=== PATIENT | female | born 1980 | race Caucasian/White ===

== ENCOUNTER 2019-07-13 06:10 | Day surgery (SDC) | payer OTHER ==
[~2019-07-13] VITALS: Ht 167.6 cm; Wt 131.6 kg
[~2019-07-13 06:10] MED LIST: CALCIUM; VITAMIN D; aspirin; folic acid; lisinopril; metformin; multivitamin; simvastatin
[2019-07-13 07:15] VITALS: Ht 167.6 cm; Wt 131.6 kg
[2019-07-13 07:20] VITALS: BP 128/69; PULSE 65; RESP 18
[2019-07-13] MEDS ORDERED: PROPOFOL 60 ML ONE (07:56)
[2019-07-13] MEDS ORDERED: LIDOCAINE 2% (SDV) 5 ML INJ ONE (07:56)
[2019-07-13 08:51] VITALS: BP 117/64; PULSE 67; RESP 18
== END 2019-07-13 11:39 | disposition home or self-care (01) ==
LOC: GIL 06:10
PROVIDERS: ATTEND Internal Medicine Gastroenterology
DX: R19.5 Other fecal abnormalities (principal); K64.4 Residual hemorrhoidal skin tags; K31.7 Polyp of stomach and duodenum; E11.9 Type 2 diabetes mellitus without complications; I10 Essential (primary) hypertension; Z79.82 Long term (current) use of aspirin; Z79.84 Long term (current) use of oral hypoglycemic drugs
CPT/HCPCS: 43239; 45378; 82962; 84703; 88305; 88312; Z7610